=== PATIENT | female | born 1960 | race Caucasian/White ===

== ENCOUNTER 2018-05-16 16:12 | Emergency (ER) | payer MEDICARE ==
[~2018-05-16] VITALS: Ht 162.6 cm; Wt 79.4 kg
--- NOTE | 2018-05-16 16:14 | NUR ---
ED Nurse Note: Pt brought in by ambulance from home presents to ED with seizure activity x 2 mins per EMS, witnessed by family. Pt unable to remember what happened and Nausea with headache. Pt thinks she forgot to take her Seizure medication. Pt came in AAO x4, follows commands with non labored breathing. No active vomiting. VSS.
[2018-05-16 16:33] VITALS: BP 109/83
[2018-05-16] MEDS ORDERED: Metoclopramide 10mg/2ml Inj IVP ONE (17:00)
[2018-05-16] MEDS ORDERED: Acetaminophen 500mg (ES) tab ORAL ONE (17:00)
--- NOTE | 2018-05-16 17:14 | Diagnostic Imaging Report ---
Indications: Tonic-clonic seizure, headache, altered mental status Technique: Spiral acquisitions obtained through the brain. Angled axial and coronal 5 x 5 mm slices were reconstructed. Total dose length product 1347.93 mGycm. CTDI vol(s) 70.38 mGy. Dose reduction achieved using automated exposure control Comparison: None. Findings: There is mild age-related cortical volume loss. No acute intercranial hemorrhage nor edema, mass effect, nor midline shift. Normal white differentiation. Intact calvarium. Visualized orbits and sinuses are unremarkable. Impression: Mild age-related cortical volume loss Negative for acute intracranial bleed or mass effect The CT scanner at [facility] is accredited by the [employer] and the scans are performed using protocols designed to limit radiation exposure to as low as reasonably achievable to attain images of sufficient resolution adequate for diagnostic evaluation.
[2018-05-16 17:20] LABS: HEMATOCRIT 42.7 % (37.0-47.0); HEMOGLOBIN 13.9 G/DL (12.0-16.0); MEAN CORPUSCULAR VOLUME 82 FL (80-99); PLATELET COUNT 240 K/UL (150-450); RED BLOOD COUNT 5.17 M/UL (4.20-5.40); RED CELL DISTRIBUTION WIDTH 11.8 % (11.6-14.8); WHITE BLOOD COUNT 10.8 K/UL (4.8-10.8)
[2018-05-16 17:21] LABS: BASOPHILS % (AUTO) 0.3 % (0.0-2.0); MONOCYTES % (AUTO) 2.2 % (1.0-10.0); NEUTROPHILS % (AUTO) 87.5 % (45.0-75.0)
--- NOTE | 2018-05-16 17:30 | NUR ---
ED Nurse Note: Collecetd blood and sent. Warm blankets provided. VSS.
[2018-05-16 17:39] LABS: ANION GAP 15 mmol/L (5-15); BLOOD UREA NITROGEN 14 mg/dL (7-18); CALCIUM 9.9 MG/DL (8.5-10.1); CARBON DIOXIDE 23 MMOL/L (21-32); CHLORIDE 101 MMOL/L (98-107); CREATININE 1.3 MG/DL (0.55-1.30); POTASSIUM 4.3 MMOL/L (3.5-5.1); SODIUM 138 MMOL/L (136-145)
[2018-05-16 17:44] LABS: ALANINE AMINOTRANSFERASE 62 U/L (12-78); ALBUMIN 3.7 G/DL (3.4-5.0); ALBUMIN/GLOBULIN RATIO 0.9 (1.0-2.7); ALKALINE PHOSPHATASE 74 U/L (46-116); ASPARTATE AMINO TRANSFERASE 25 U/L (15-37); BILIRUBIN,TOTAL 0.4 MG/DL (0.2-1.0)
--- NOTE | 2018-05-16 17:50 | NUR ---
ED Nurse Note: Urine sent to lab.
[2018-05-16 18:16] VITALS: BP 147/80
[2018-05-16 18:22] VITALS: BP 147/80
--- NOTE | 2018-05-16 18:22 | NUR ---
ED Nurse Note: Pt cleared for discharge by ER MD. DC instructions was given and explained to pt and verbalized understanding of teachings. all medical devices such as ID band/IV removed. Pt is AAO x4, ambulatory and left with all perosnal belongings.
--- NOTE | 2018-05-16 20:28 | Emergency Room Report ---
History of Present Illness General Chief Complaint: Seizure Source: EMS Present Illness HPI 57-year-old female presents ED for evaluation. Patient is status post seizure. Witnessed. Patient is visiting from [place] and had witnessed seizure on porch of house. Questionable head injury. Upon arrival patient is post ictal. States that she has history of seizures and takes gabapentin 4 times a day. States that she missed one dose earlier. Was given gabapentin by EMS. States she's been having headache all day. History of migraines and takes Depakote. Throbbing, 7 out of 10, nonradiating. Denies nausea or vomiting. Denies alcohol or drug use. No other aggravating relieving factors. Denies any other associated symptoms Allergies: Coded Allergies: HALOPERIDOL (Verified Allergy, Unknown, 05/16/18) MORPHINE (Verified Allergy, Unknown, 05/16/18) SULFA (SULFONAMIDE ANTIBIOTICS) (Verified Allergy, Unknown, 05/16/18) TRAMADOL (Verified Allergy, Unknown, 05/16/18) Patient History Past Medical History: HTN Past Surgical History: none Pertinent Family History: none Social History: Denies: smoking, alcohol use, drug use Last Menstrual Period: N/A Now: No Immunizations: UTD Reviewed Nursing Documentation: PMH: Agreed; PSxH: Agreed Nursing Documentation-PMH Past Medical History: No History, Except For Hx Hypertension: Yes Hx Seizures: Yes Review of Systems All Other Systems: negative except mentioned in HPI Physical Exam Vital Signs Date Time Temp Pulse Resp B/P (MAP) Pulse Ox O2 Delivery O2 Flow Rate FiO2 05/16/18 16:04 94 18 175/107 99 Room Air 05/16/18 16:33 97.9 Sp02 EP Interpretation: reviewed, normal General Appearance: no apparent distress, alert, GCS 15, non-toxic Head: normocephalic, atraumatic Eyes: bilateral eye normal inspection, bilateral eye PERRL ENT: hearing grossly normal, normal pharynx, no angioedema, normal voice Neck: full range of motion, supple/symm/no masses Respiratory: chest non-tender, lungs clear, normal breath sounds, speaking full sentences Cardiovascular #1: regular rate, rhythm, no edema Cardiovascular #2: 2+ carotid (R), 2+ carotid (L), 2+ radial (R), 2+ radial (L) , 2+ dorsalis pedis (R), 2+ dorsalis pedis (L) Gastrointestinal: normal bowel sounds, non tender, soft, non-distended, no guarding, no rebound Rectal: deferred Genitourinary: normal inspection, no CVA tenderness Musculoskeletal: back normal, gait/station normal, normal range of motion, non- tender Neurologic: alert, oriented x3, responsive, motor strength/tone normal, sensory intact, speech normal Psychiatric: judgement/insight normal, memory normal, mood/affect normal, no suicidal/homicidal ideation Reflexes: 3+ bicep (R), 3+ bicep (L), 3+ tricep (R), 3+ tricep (L), 3+ knee (R) , 3+ knee (L) Skin: normal color, no rash, warm/dry, well hydrated Lymphatic: no adenopathy Medical Decision Making Diagnostic Impression: Primary Impression: Seizure disorder ER Course Hospital Course 57-year-old F presents to ED status post seizure. c/o headache Differential diagnosis includes- breakthrough seizure, alcohol abuse, noncompliance with medication Clinical course Patient placed on stretcher. Initial history and physical I ordered labs, IV fluids, EKG, CT head Labs-electrolytes okay, no leukocytosis, hemoglobin/hematocrit stable. EKG - NSR, no acute ischemic changes interpreted by sc CT Brain ok Patient observed on monitoring engineer. No additional seizure activity. Patient awake alert oriented 3. No focal neurological deficits. Safe for discharge with close outpatient follow-up. States she will follow-up with her PMD when she returns to [place]. States she has her medication at home Diagnosis - seizure disorder stable and discharged to home. Followup with PMD. Return to ED if symptoms recur or worsen Labs Test 05/16/18 16:55 05/16/18 17:41 White Blood Count 10.8 K/UL (4.8-10.8) Red Blood Count 5.17 M/UL (4.20-5.40) Hemoglobin 13.9 G/DL (12.0-16.0) Hematocrit 42.7 % (37.0-47.0) Mean Corpuscular Volume 82 FL (80-99) Mean Corpuscular Hemoglobin 27.0 PG (27.0-31.0) Mean Corpuscular Hemoglobin Concent 32.7 G/DL (32.0-36.0) Red Cell Distribution Width 11.8 % (11.6-14.8) Platelet Count 240 K/UL (150-450) Mean Platelet Volume 6.9 FL (6.5-10.1) Neutrophils (%) (Auto) 87.5 % (45.0-75.0) Lymphocytes (%) (Auto) 10.0 % (20.0-45.0) Monocytes (%) (Auto) 2.2 % (1.0-10.0) Eosinophils (%) (Auto) 0.0 % (0.0-3.0) Basophils (%) (Auto) 0.3 % (0.0-2.0) Sodium Level 138 MMOL/L (136-145) Potassium Level 4.3 MMOL/L (3.5-5.1) Chloride Level 101 MMOL/L (98-107) Carbon Dioxide Level 23 MMOL/L (21-32) Anion Gap 15 mmol/L (5-15) Blood Urea Nitrogen 14 mg/dL (7-18) Creatinine 1.3 MG/DL (0.55-1.30) Estimat Glomerular Filtration Rate 42.2 mL/min (>60) Glucose Level 218 MG/DL (74-106) Calcium Level 9.9 MG/DL (8.5-10.1) Total Bilirubin 0.4 MG/DL (0.2-1.0) Aspartate Amino Transf (AST/SGOT) 25 U/L (15-37) Alanine Aminotransferase (ALT/SGPT) 62 U/L (12-78) Alkaline Phosphatase 74 U/L (46-116) Total Protein 7.6 G/DL (6.4-8.2) Albumin 3.7 G/DL (3.4-5.0) Globulin 3.9 g/dL Albumin/Globulin Ratio 0.9 (1.0-2.7) Salicylates Level 4.8 ug/mL (2.8-20) Acetaminophen Level < 2 MCG/ML (10-30) Valproic Acid (Depakene) Level 51 MCG/ML (50-100) Serum Alcohol < 3 mg/dL Urine Opiates Screen Negative (NEGATIVE) Urine Barbiturates Screen Negative (NEGATIVE) Phencyclidine (PCP) Screen Negative (NEGATIVE) Urine Amphetamines Screen Negative (NEGATIVE) Urine Benzodiazepines Screen Negative (NEGATIVE) Urine Cocaine Screen Negative (NEGATIVE) Urine Marijuana (THC) Screen Positive (NEGATIVE) EKG Diagnostic Results Rate: normal Rhythm: NSR ST Segments: no acute changes ASA given to the pt in ED: No Rhythm Strip Diag. Results EP Interpretation: yes Rhythm: NSR, no PVC's, no ectopy CT/MRI/US Diagnostic Results CT/MRI/US Diagnostic Results : Imaging Test Ordered: CT head Impression no acute process Last Vital Signs Date Time Temp Pulse Resp B/P (MAP) Pulse Ox O2 Delivery O2 Flow Rate FiO2 05/16/18 18:22 98.3 78 16 147/80 100 Room Air Status: improved Disposition: HOME, SELF-CARE Condition: Stable Referrals: NON PHYSICIAN (PCP) Patient Instructions: Seizure, Adult Additional Instructions: please excuse patient from her flight tonight. please allow her to fly at a later date of her choosing. Abhijeet Rose MD May 16, 2018 20:28
== END 2018-05-16 18:30 | disposition home or self-care (01) ==
LOC: EDBD 16:12 → EMR 16:53
DX: G43.909 Migraine, unspecified, not intractable, without status migrainosus (principal); I10 Essential (primary) hypertension; Z88.5 Allergy status to narcotic agent; Z88.2 Allergy status to sulfonamides
CPT/HCPCS: 36415; 70450; 80053; 80164; 80307; 82962; 85025; 93005; 96374; 99284; G0480; J2765; J7040; 80329